=== PATIENT | female | born 1980 | race Caucasian/White ===

== ENCOUNTER 2017-03-23 03:01 | Inpatient (IN) | payer OTHER ==
[~2017-03-23] VITALS: Ht 167.6 cm; Wt 73.0 kg
[~2017-03-23 03:01] MED LIST: CYAN1LOZ PO; DOXY-300 PO; GABA-113 PO; HYDR-5688 PO; MISCCAP80 PO; SILV1PAD9 TOP; TOPI50TA16 PO; TRAZ50TA35 PO; VENL150C PO; [UNRECOGNIZED DRUG - CODE] TOP
--- NOTE | 2017-03-23 03:27 | EMERGENCY ROOM VISIT NOTE ---
History Report prepared by Veena: Dedrick Gutierrez Under the Supervision of: Dr. Renato Forman D.O. First contact with patient: 03:10 Chief Complaint: MENTAL HEALTH EVALUATION Stated Complaint: MR History of Present Illness The patient is a 37 year old female who presents to the Emergency Room for an acute mental health evaluation. As per geriatric case manager, the patient has a history of paranoid schizophrenia and is off of her medications. The patient called police tonight because she thought that somebody was outside of her house. She told police that the person went into her home and was sitting on her couch. She also told police that she was afraid that said person was going to kill her. Police did not find any intruders. The patient is currently denying delusions or hallucinations. She does not currently trust anybody and does not want to answer more questions. She believes that her phone was hacked. She has also been having problems with her domestic partner and has been having trouble sleeping. The patient notes that she drinks a lot of water as she is carrying a water jug around with her. The patient follows up with psychiatry. The patient is not taking her Trazodone. She denies suicidal or homicidal ideations. Source of History: patient, other (geriatric case manager) Onset: tonight Position: other (psyche) Quality: other (mental health evaluation) Timing: other (acute) Note: The patient denies SI or HI. Review of Systems See HPI for pertinent positives and negatives. A total of ten systems were reviewed and were otherwise negative. Past Medical & Surgical Medical Problems: (1) Anxiety (2) Depression (3) History of intravenous drug use in remission (4) IBS (irritable bowel syndrome) (5) Migraines (6) MRSA (methicillin resistant staph aureus) culture positive Surgical Problems: (1) History of section Family History Patient reports no known family medical history. Social History Smoking Status: Current Every Day Smoker Drug Use: other Marital Status: single Occupation Status: employed Current/Historical Medications Scheduled Buspirone Hcl (Buspirone Hcl), 5 MG PO BID Lurasidone Hcl (Latuda), 40 MG PO HS Topiramate (Topamax), 50 MG PO DAILY Trazodone Hcl (Trazodone), 50 MG PO HS Allergies Coded Allergies: Quinolones (Verified Allergy, Unknown, SENSITIVE, 03/23/17) Physical Exam Vital Signs Date Time Temp Pulse Resp B/P Pulse Ox O2 Delivery O2 Flow Rate FiO2 03/23/17 05:35 110 16 145/96 98 Room Air 03/23/17 03:05 36.6 110 18 142/90 99 Room Air Physical Exam GENERAL: Awake, alert, well-appearing, in no distress HENT: Normocephalic, atraumatic. Oropharynx unremarkable. EYES: Normal conjunctiva. Sclera non-icteric. NECK: Supple. No nuchal rigidity. FROM. No JVD. RESPIRATORY: Clear to auscultation. CARDIAC: Regular rate, normal rhythm. Extremities warm and well perfused. Pulses equal. ABDOMEN: Soft, non-distended. No tenderness to palpation. No rebound or guarding. No masses. RECTAL: Deferred. MUSCULOSKELETAL: Chest examination reveals no tenderness. The back is symmetrical on inspection without obvious abnormality. There is no CVA tenderness to palpation. No joint edema. LOWER EXTREMITIES: Calves are equal size bilaterally and non-tender. No edema. No discoloration. NEURO: Normal sensorium. No sensory or motor deficits noted. SKIN: No rash or jaundice noted. PSYCH: Paranoid, confrontational, delusional, agitated. Medical Decision & Procedures Laboratory Results 03/23/17 03:41 Red Blood Count 4.70, Mean Corpuscular Volume 91.9, Mean Corpuscular Hemoglobin 31.7, Mean Corpuscular Hemoglobin Concent 34.5, Mean Platelet Volume 10.1, Neutrophils (%) (Auto) 73.8, Lymphocytes (%) (Auto) 20.3, Monocytes (%) (Auto) 4.8, Eosinophils (%) (Auto) 0.7, Basophils (%) (Auto) 0.2, Neutrophils # (Auto) 9.26, Lymphocytes # (Auto) 2.55, Monocytes # (Auto) 0.60, Eosinophils # (Auto) 0.09, Basophils # (Auto) 0.03 03/23/17 03:41 Test 03/23/17 03:35 03/23/17 03:41 03/23/17 04:30 Urine Color YELLOW Urine Appearance CLEAR (CLEAR) Urine pH 6.0 (4.5-7.5) Urine Specific [place] 1.007 (1.000-1.030) Urine Protein NEG (NEG) Urine Glucose (UA) NEG (NEG) Urine Ketones NEG (NEG) Urine Occult Blood NEG (NEG) Urine Nitrite NEG (NEG) Urine Bilirubin NEG (NEG) Urine Urobilinogen NEG (NEG) Urine Leukocyte Esterase NEG (NEG) Urine Opiates Screen NEG (NEG) Urine Methadone, Qualitative NEG (NEG) Urine Barbiturates NEG (NEG) Urine Phencyclidine (PCP) Level NEG (NEG) Ur Amphetamine/Methamphetamine POS (NEG) MDMA (Ecstasy) Screen POS (NEG) Urine Benzodiazepines Screen NEG (NEG) Urine Cocaine Metabolite NEG (NEG) Urine Marijuana (THC) NEG (NEG) White Blood Count 12.56 K/uL (4.8-10.8) Red Blood Count 4.70 M/uL (4.2-5.4) Hemoglobin 14.9 g/dL (12.0-16.0) Hematocrit 43.2 % (37-47) Mean Corpuscular Volume 91.9 fL (80-100) Mean Corpuscular Hemoglobin 31.7 pg (25-34) Mean Corpuscular Hemoglobin Concent 34.5 g/dl (32-36) Platelet Count 428 K/uL (130-400) Mean Platelet Volume 10.1 fL (7.4-10.4) Neutrophils (%) (Auto) 73.8 % Lymphocytes (%) (Auto) 20.3 % Monocytes (%) (Auto) 4.8 % Eosinophils (%) (Auto) 0.7 % Basophils (%) (Auto) 0.2 % Neutrophils # (Auto) 9.26 K/uL (1.4-6.5) Lymphocytes # (Auto) 2.55 K/uL (1.2-3.4) Monocytes # (Auto) 0.60 K/uL (0.11-0.59) Eosinophils # (Auto) 0.09 K/uL (0-0.5) Basophils # (Auto) 0.03 K/uL (0-0.2) RDW Standard Deviation 42.6 fL (36.4-46.3) RDW Coefficient of Variation 12.6 % (11.5-14.5) Immature Granulocyte % (Auto) 0.2 % Immature Granulocyte # (Auto) 0.03 K/uL (0.00-0.02) Anion Gap 9.0 mmol/L (3-11) Est Creatinine Clear Calc Drug Dose 93.0 ml/min Estimated GFR () 103.0 Estimated GFR (Non- 88.8 BUN/Creatinine Ratio 9.2 (10-20) Calcium Level 9.4 mg/dl (8.5-10.1) Total Bilirubin 0.6 mg/dl (0.2-1) Direct Bilirubin 0.1 mg/dl (0-0.2) Aspartate Amino Transf (AST/SGOT) 15 U/L (15-37) Alanine Aminotransferase (ALT/SGPT) 33 U/L (12-78) Alkaline Phosphatase 86 U/L (45-117) Total Protein 9.0 gm/dl (6.4-8.2) Albumin 4.6 gm/dl (3.4-5.0) Thyroid Stimulating Hormone (TSH) 0.870 uIu/ml (0.300-4.500) Ethyl Alcohol mg/dL < 3.0 mg/dl (0-3) Bedside Glucose 126 mg/dl (70-90) Laboratory results reviewed by me Medications Administered Medications (Trade) Dose Ordered Sig/Jason Route Start Time Stop Time Status Last Admin Dose Admin Haloperidol Lactate (Haldol Inj) 10 mg STK-MED ONCE .ROUTE 03/23/17 04:53 03/23/17 04:54 DC 03/23/17 04:57 10 MG ED Course 0320: The patient was evaluated in room A5. A complete history and physical exam was performed. 0500: The patient became highly agitated. She was given 10 mg Haldol IM. 0523: The patient told nursing staff that she has been smoking methamphetamine. 0555: The patient is being evaluated by Mobile Crisis. 0640: The patient is a voluntary admission. Bed search being conducted. Medical Decision Differential diagnosis includes acute psychosis, acute anxiety, acute depression , acute schizophrenic, acute bipolar disorder, acute metabolic derangement. Patient at 5:02 AM had an episode of being combative and agitated with security at bedside. Patient was given Haldol 10 mg intramuscular as well as soft restraints. Patient is still awaiting psychiatric evaluation and likely will be transferred for psych treatment Spoke with the crisis counselor at 6:45 AM the patient will be admitted under 201 is currently a bed search. Patient has been stable and calm after medications were administered Impression Primary Impression: Psychosis Scribe Attestation The scribe's documentation has been prepared under my direction and personally reviewed by me in its entirety. I confirm that the note above accurately reflects all work, treatment, procedures, and medical decision making performed by me. Departure Information Dispostion Still a Patient Referrals No Doctor, Assigned (PCP) Patient Instructions My [facility] Problem Qualifiers Primary Impression: Psychosis Psychosis type: delusional disorder Qualified Codes: F22 - Delusional disorders
[2017-03-23 03:59] LABS: BASO % 0.2 %; BASO ABS # 0.03 K/uL (0-0.2); COMPLETE YES; EOS % 0.7 %; HEMATOCRIT 43.2 % (37-47); IG% 0.2 %; LYMPH % 20.3 %; LYMPH ABS # 2.55 K/uL (1.2-3.4); MEAN CELL VOLUME 91.9 fL (80-100); MEAN CORPUSCULAR HEMOGLOBIN 31.7 pg (25-34); MEAN CORPUSCULAR HGB CONC 34.5 g/dl (32-36); MEAN PLATELET VOLUME 10.1 fL (7.4-10.4); MONO % 4.8 %; NEUT % 73.8 %; PLATELET COUNT 428 K/uL (130-400); WHITE BLOOD COUNT 12.56 K/uL (4.8-10.8)
[2017-03-23 04:01] LABS: URINE APPEARANCE CLEAR (CLEAR); URINE BILIRUBIN NEG (NEG); URINE COLOR YELLOW; URINE NITRITE NEG (NEG); URINE SPECIFIC GRAVITY 1.007 (1.000-1.030); UROBILINOGEN NEG (NEG)
[2017-03-23 04:03] LABS: MANUAL MICROSCOPIC REQUIRED? NO; REVIEW REQ? NO
[2017-03-23] MEDS ORDERED: BUSP5TAB59 PO (04:26)
[2017-03-23] MEDS ORDERED: LURA40TA PO (04:26)
[2017-03-23 04:27] LABS: BUN/CREATININE RATIO 9.2 (10-20); CALCIUM 9.4 mg/dl (8.5-10.1); CREATININE 0.83 mg/dl (0.60-1.20); POTASSIUM 3.3 mmol/L (3.5-5.1)
[2017-03-23 04:39] LABS: THYROID STIMULATING HORMONE 0.87 uIu/ml (0.300-4.500)
[2017-03-23 04:51] LABS: BENZODIAZEPINE, URINE NEG (NEG); COCAINE,URINE NEG (NEG); PHENCYCLIDINE, URINE NEG (NEG)
[2017-03-23] MEDS ORDERED: HALOPERIDOL LACTATE 5 MG/ML 1 ML VIAL ONE (04:53)
[2017-03-23] MEDS ORDERED: NURSING VERBAL MED ORDER ONE ×2 (05:00→14:00)
[2017-03-23 07:10] VITALS: O2SAT 98
[2017-03-23] MEDS ORDERED: BusPIRone 15 MG TAB PO STA (09:05)
[2017-03-23] MEDS ORDERED: TOPIRAMATE 50 MG TAB PO STA (09:05)
[2017-03-23] MEDS ORDERED: HALOPERIDOL 5 MG TAB PO STA (10:02)
--- NOTE | 2017-03-23 10:08 | EMERGENCY ROOM VISIT NOTE ---
ED Visit Note First contact with patient: 08:02 This patient was signed out to me at change of shift awaiting bed search. I will order 5 mg of BuSpar and 50 mg of Topamax as these are her daily medications. The patient will be evaluated shortly by staff from [facility]. 1005: The patient has been accepted by [facility]. They requested that we order 5 mg of oral Haldol. I did this. The patient became upstairs in the next couple of hours for further care.
[2017-03-23] MEDS ORDERED: SODIUM CHLORIDE 0.65% NA SOLN 45 ML (OCEAN) PRN (14:45)
[2017-03-23] MEDS ORDERED: ACETAMINOPHEN 325 MG TAB PO PRN (14:45)
[2017-03-23] MEDS ORDERED: ALUMINUM/MAGNESIUM SUSP 30 ML UDC PO PRN (14:45)
[2017-03-23] MEDS ORDERED: hydrOXYzine HCL 25 MG TAB PO PRN ×2 (14:45)
[2017-03-23] MEDS ORDERED: MAGNESIUM HYDROXIDE SUSP 30 ML UDC PO PRN (14:45)
[2017-03-23] MEDS ORDERED: BISMUTH SUBSALICYLATE PER ML OMNICELL CHARGE PO PRN (14:45)
[2017-03-23 15:02] VITALS: BP 112/79; PULSE 103; TEMP 36.9; Ht 167.6 cm; Wt 73.0 kg
--- NOTE | 2017-03-23 15:08 | Psychiatric History & Physical ---
History Date of Service Mar 23, 2017. Identifying Data Clarisa Zhu is a 37-year-old female who currently lives in [place] with her boyfriend. Clarisa Zhu was admitted on a 201 voluntary commitment. Patient is admitted from ED. The patient was brought to the ED by the police after calling about an intruder. Information provided by the patient is considered to be unreliable due to psychosis. Chief Complaint "I don't feel safe, I'm pretty sure someone is after me". History of Present Illness Clarisa was last on our unit in 2010, at that time she was admitted with a diagnosis of bipolar do with paranoia due to injecting bath salts. She states that she has since her and was avoiding substances until about 3 months ago. She states her current diagnosis is paranoid schizophrenia. She reports being admitted to [facility] in December and using meth amphetamines (unable to quantify) so that she can stay up at night as she believes a man (who looks like the network security engineer she sprayed perfume on in the ED) is trying to harm her. She believes that her food/beverages may be contaminated and obsessively drinks water to flush toxins. She checks and rechecks her pills and believes that some of them may be replaced/not correct. She has actually thrown out her supply of Neurontin. She remains under the care of Dr. Brown and his physician's elementary assistant principal and states that attempts to titrate Latuda have only resulted in her feeling "not right", meaning more suicidal. She denies any intent or plan to harm herself currently. She apologized for changing the subject and getting upset and for her restlessness. She did receive Haldol IM in ED and then 1 dose PO prior to coming up to unit. After the agitation with security early this am she was briefly in soft restraints. She believes that she hears things but cannot describe at this time adding "I know this stuff is real". Past Psychiatric History Current OP Treatment: psychiatrist (Kevin but states has an appt with [facility] psych [facility] on Sunday for a new prescriber), therapist ([facility]), binder caser Prior OP Treatment: psychiatrist, therapist Prior Psych Hospitalizations: [facility]2010), other ([place] 2016, maybe others) Access to a Gun: No (denies but not reliable) Suicide Attempts: No (but not reliable) Past Medication Trials "I've been on everything". Chart lists lamictal, lithium, Seroquel, Zyprexa, Geodon, Risperdal, trazodone; most recently Latuda, doesn't recognize latuda or topamax given in ED. She notes past positive response to Risperdal and [place]. Past Medical/Surgical History History of Concussion/Seizure: No (1) Migraines (2) IBS (irritable bowel syndrome) (3) History of section Allergies Allergies: Coded Allergies: Quinolones (Verified Allergy, Unknown, SENSITIVE, 03/23/17) Home Medications Scheduled Buspirone Hcl (Buspirone Hcl), 5 MG PO BID Lurasidone Hcl (Latuda), 40 MG PO HS Topiramate (Topamax), 50 MG PO DAILY Trazodone Hcl (Trazodone), 50 MG PO HS Family History Patient reports no known family medical history. History of Suicide: Yes (several extended relatives in past year) History of Substance Abuse: No Psychiatric History: Yes (depression) Alcohol Use Alcohol Use In Past 12 Months: No Smoking Use Smoking Status: Current Every Day Smoker (1 PPD) brief intervention performed lasting >5 min, precontemplation stage with regards to quitting as finds helpful coping skill at this time. Accepting of nicotine patch. Substance History has been inpatient rehab at least twice in 2006 and 2008--history of ETOH dependence in 20s, past heroin, mentions trying other "running the gamut", patient disorganized and unable to quantify. She admits to use of methamphetamines prior to admission. Personal History Lives in: [place] Education: graduated college (associates degree from [employer] ([employer])) Work History: unemployed, states she was denied SSI Relationship History: ( several years, finalized June 2016) Children: 2--son who is about to graduate lives with her parents, daughter with ex Spiritual Affiliation: denied Legal History: reported (hx of DUIs in 20s, "multiple restraining orders" by mother and sister) Psychological Trauma History: Victimization (patient wouldn't elaborate) Review of Systems Psych: denies symptoms other than stated above Constitutional: denied Cardiovascular: denied GI: denied Neurologic: denied Remainder of 10 body systems also reviewed and denied other than noted above. Examination Physical Examination A physical exam was performed in the ER by Dr. Sampson prior to admission to the unit. I accept that physical as correct/medical clearance for the inpatient physical exam. Vital Signs Vital Signs Past 12 Hours Date Time Temp Pulse Resp B/P Pulse Ox O2 Delivery O2 Flow Rate FiO2 03/23/17 07:10 102 20 115/74 98 Room Air 03/23/17 05:35 110 16 145/96 98 Room Air 03/23/17 03:05 36.6 110 18 142/90 99 Room Air Laboratory Results Last 24 Hours Test 03/23/17 03:35 03/23/17 03:41 03/23/17 04:30 Urine Color YELLOW Urine Appearance CLEAR Urine pH 6.0 Urine Specific [place] 1.007 Urine Protein NEG Urine Glucose (UA) NEG Urine Ketones NEG Urine Occult Blood NEG Urine Nitrite NEG Urine Bilirubin NEG Urine Urobilinogen NEG Urine Leukocyte Esterase NEG Urine Opiates Screen NEG Urine Methadone, Qualitative NEG Urine Barbiturates NEG Urine Phencyclidine (PCP) Level NEG Ur Amphetamine/Methamphetamine POS MDMA (Ecstasy) Screen POS Urine Benzodiazepines Screen NEG Urine Cocaine Metabolite NEG Urine Marijuana (THC) NEG White Blood Count 12.56 K/uL Red Blood Count 4.70 M/uL Hemoglobin 14.9 g/dL Hematocrit 43.2 % Mean Corpuscular Volume 91.9 fL Mean Corpuscular Hemoglobin 31.7 pg Mean Corpuscular Hemoglobin Concent 34.5 g/dl Platelet Count 428 K/uL Mean Platelet Volume 10.1 fL Neutrophils (%) (Auto) 73.8 % Lymphocytes (%) (Auto) 20.3 % Monocytes (%) (Auto) 4.8 % Eosinophils (%) (Auto) 0.7 % Basophils (%) (Auto) 0.2 % Neutrophils # (Auto) 9.26 K/uL Lymphocytes # (Auto) 2.55 K/uL Monocytes # (Auto) 0.60 K/uL Eosinophils # (Auto) 0.09 K/uL Basophils # (Auto) 0.03 K/uL RDW Standard Deviation 42.6 fL RDW Coefficient of Variation 12.6 % Immature Granulocyte % (Auto) 0.2 % Immature Granulocyte # (Auto) 0.03 K/uL Sodium Level 139 mmol/L Potassium Level 3.3 mmol/L Chloride Level 108 mmol/L Carbon Dioxide Level 22 mmol/L Anion Gap 9.0 mmol/L Blood Urea Nitrogen 8 mg/dl Creatinine 0.83 mg/dl Est Creatinine Clear Calc Drug Dose 93.0 ml/min Estimated GFR () 103.0 Estimated GFR (Non- 88.8 BUN/Creatinine Ratio 9.2 Random Glucose 100 mg/dl Calcium Level 9.4 mg/dl Total Bilirubin 0.6 mg/dl Direct Bilirubin 0.1 mg/dl Aspartate Amino Transf (AST/SGOT) 15 U/L Alanine Aminotransferase (ALT/SGPT) 33 U/L Alkaline Phosphatase 86 U/L Total Protein 9.0 gm/dl Albumin 4.6 gm/dl Thyroid Stimulating Hormone (TSH) 0.870 uIu/ml Ethyl Alcohol mg/dL < 3.0 mg/dl Bedside Glucose 126 mg/dl Mental Examination During interview pt is: alert and oriented Appearance: disheveled Eye contact is: fair Motor behavior is: steady gait & station, psychomotor agitation Speech: other (hyperverbal, fast) Affect: depressed, tearful, anxious Mood is: depressed, anxious Thought process: tangential, flight of ideas Thought content: preoccupation, paranoid, compulsions, delusions Suicidal thought are: present, Plan: denied, Intent: denied Homicidal thoughts are: denied, Plan: denied, Intent: denied Hallucinations: denies auditory, denies visual Cognition: language grossly intact (attention impaired), other Intelligence estimated to be: above average Insight: impaired Judgement: impaired Impression / Recommendations Impression 37 yo female with prior diagnoses of paranoid schizophrenia and bipolar disorder presents with mixed manic and depressed mood in the context of methamphetamine abuse. Inventory Assets Strengths: hx of advanced degree, accepting of need for medication Risk Factors Assessment : Yes /single/: Yes Mental Health Diagnoses: Yes Substance use disorders: Yes Previous psychiatric stay: Yes Recommendations (1) Schizoaffective disorder, bipolar type 03/23 -- [facility] ) on q 15 min checks (behavioral with suicide precautions) for safety. The patient will participate in group, recreational and milieu therapies and will be offered additional individual and family sessions as clinically appropriate. She is agreeable to a trial of Invega with probable conversion to injectable following discussion of risks/benefits/alternatives including but not limited to risks of TD and need for metabolic monitoring. Will d/c Latuda as hasn't been taking consistently and start Invega 3 mg this hs. Consider lithium retrial. Haldol, Ativan and Cogentin prns. d/c Buspar as serotonergic. (2) Substance use disorder Brief intervention was performed, patient aware that methamphetamine use likely trigger for manic episode and worsening paranoia. Brief intervention lasted >5 min. Patient states she plans to abstain. Additional recovery materials to be provided when less psychotic/better attention span and will address level of D& A counseling. (3) Migraines continue topamax (4) Nicotine dependence Brief Intervention as above. 21 mg Nicotine patch. CPT Code Initial Hospital Care: [id number]
[2017-03-23] MEDS ORDERED: NICOTINE POLACRILEX 2 MG GUM MT PRN (15:45)
[2017-03-23] MEDS: NICOTINE 21 MG/24 HR TDSY TD SCH (16:18)
[2017-03-23] MEDS: HALOPERIDOL 5 MG TAB PO PRN (16:18)
[2017-03-23] MEDS: PALIPERIDONE 3 MG TABCR PO SCH (21:14)
[2017-03-23] MEDS: TRAZODONE HCL 50 MG TAB PO SCH (21:14)
[2017-03-24 07:06] VITALS: BP_SYST 90; BP_SYST 96; BP_DIAS 62; BP_DIAS 68; PULSE 89; PULSE 91; TEMP 36.5
--- NOTE | 2017-03-24 08:02 | Psychiatric Progress Notes ---
Progress Note Date of Service Mar 24, 2017. Interval History 37-year-old female with a history of bipolar disorder, schizophrenia and methamphetamine and bath salt abuse who currently lives in [place] with her boyfriend and was admitted on a 201 voluntary commitment after she presented to the ED. The patient was brought to the ED by the police after calling about an intruder, and was found to be psychotic. Chief Complaint "Just so tired". Subjective Patient was seen & assessed interval progress reviewed with nursing. Staff report she attended some groups but refused others due to racing thoughts. She got multiple prns of Haldol. She submitted a 72 hour notice to withdraw from treatment which expires 03/26/17. She is taking Invega as ordered. She had a repeat BMP today and potassium has normalized. Today, she was seen in her room , where she is in bed resting. She states that she feels irritable and tired, which is usual for her when coming off of meth. She last used meth 2 days ago, the day before she came to the hospital. She reports using episodically, usually multiple times a week, and although she doesn't consider herself an addict, she says that the meth "has become a problem in the past couple of months." She does say she wants to stop using, and does not feel that she needs inpatient rehabilitation, stating "I can do it myself." She does have outpatient substance abuse counseling with Mariella at [facility]. Mood continues to be depressed and she endorses suicidal thoughts, thinking "what's the point anyhow." She does want to feel better, but at the same time wants to ensure that she can leave the hospital soon, as she feels guilty and lonely here , again she needs to get out and find a job. She also does not like being locked up inside, and says she submitted her 72 hour notice as she hopes to leave sooner rather than later. At the same time, she expresses understanding that in order to follow the treatment plan she agreed to yesterday, she would need to stay for at least 4-5 days in order to be started on Invega Sustenna. She has tolerated the oral Invega well, and also reports that she took risperidone oral in the past, which she tolerated well and was helpful, but caused weight gain. She remains willing for the Invega Sustenna shots, stating that compliance with oral medication has been a big problem for her. She feels safe here in the hospital and is able to contract for safety on the unit, but not outside the hospital. She denies hallucinations and delusions. Sleep Information Total Hours of Sleep: 8.50 Meal Information Percent of Dinner Consumed: 70 Mental Status Exam During interview pt is: alert and oriented, cooperative Appearance: disheveled, other (tired, yawning) Eye contact is: fair Motor behavior is: psychomotor agitation (restlessness, shifting around in bed) Speech: normal in rate, rhythm & volume Affect: depressed, anxious, other (tired) Mood is: depressed Thought process: goal directed Thought content: preoccupation, cognitive distortions Suicidal thought are: present Homicidal thoughts are: denied Hallucinations: denies auditory, denies visual Cognition: other (attention impaired) Intelligence estimated to be: above average Insight: impaired Judgement: impaired Impression 37 yo female with prior diagnoses of paranoid schizophrenia and bipolar disorder presents with psychosis and mixed manic and depressive symptoms in the context of methamphetamine abuse. Plan (1) Schizoaffective disorder, bipolar type 03/23 -- The patient is admitted to [facility] ([facility] unit ) on q 15 min checks (behavioral with suicide precautions) for safety. The patient will participate in group, recreational and milieu therapies and will be offered additional individual and family sessions as clinically appropriate. She is agreeable to a trial of Invega with probable conversion to injectable following discussion of risks/benefits/alternatives including but not limited to risks of TD and need for metabolic monitoring. Will d/c Latuda as hasn't been taking consistently and start Invega 3 mg this hs. Consider lithium retrial. Haldol, Ativan and Cogentin prns. d/c Buspar as serotonergic. 03/24 -Continue oral Invega with plan to progress to Sustenna due to noncompliance with oral medications. She would like to start the Invega Sustenna shot today, as she is hoping to have a shorter hospital stay, and if she is tolerating oral Invega well and also tolerated oral risperidone in the past, she is unlikely to have an adverse reaction. We'll get the 234 mg loading dose today, and the 156 mg shots on 03/28/2017. She will then need maintenance dosing of 117 mg 5 weeks after the first injection (on or around 04/28/2017) and then every 4 weeks. -Pt has submitted a 72 hour notice requesting to withdraw from treatment. She is committable and may need to pursue 302. -Fasting labs for monitoring on an atypical: WNLS. -Coordinate care with outpatient psychiatrist (switching from Dr. Brown to the [facility] psych clinic). Appointment with Dr. Arauz may need to be rescheduled if she is still in the hospital. (2) Substance use disorder Brief intervention was performed, patient aware that methamphetamine use likely trigger for manic episode and worsening paranoia. Brief intervention lasted >5 min. Patient states she plans to abstain. Additional recovery materials to be provided when less psychotic/better attention span and will address level of D& A counseling. (3) Migraines continue topamax (4) Nicotine dependence Brief Intervention performed on admission. 21 mg Nicotine patch. (5) MRSA (methicillin resistant staph aureus) culture positive MNPR with appropriate precautions. 03/24 - Check MRSA nasal swab to determine current status. Discharge / Aftercare Planning Therapist: Name: [facility] Research And Development Manager: Name: Sophie Patel Visit Code E&M Code: 27745 Inventory Assets Strengths: hx of advanced degree, accepting of need for medication Risk Factors Assessment : Yes /single/: Yes Mental Health Diagnoses: Yes Substance use disorders: Yes Previous psychiatric stay: Yes Data Vital Signs Last 24 Hrs: Date Time Temp Pulse Resp B/P Pulse Ox O2 Delivery O2 Flow Rate FiO2 03/24/17 07:06 36.5 89 16 96/68 91 90/62 03/23/17 15:02 36.9 103 16 112/79 Meds Administered Last 24 Hrs: Meds Administered (Past 24Hrs) Medications (Trade) Dose Ordered Sig/Jason Route Start Time Stop Time Status Last Admin Dose Admin Haloperidol Lactate (Haldol Inj) 10 mg STK-MED ONCE .ROUTE 03/23/17 04:53 03/23/17 15:37 DC 03/23/17 04:57 10 MG Buspirone HCl (BusPAR TAB) 5 mg NOW STAT PO 03/23/17 09:05 03/23/17 15:37 DC 03/23/17 09:05 5 MG Topiramate (Topamax Tab) 50 mg NOW STAT PO 03/23/17 09:05 03/23/17 15:37 DC 03/23/17 09:05 50 MG Haloperidol (Haldol Tab) 5 mg NOW STAT PO 03/23/17 10:02 03/23/17 15:37 DC 03/23/17 10:02 5 MG Paliperidone (Invega) 3 mg HS PO 03/23/17 22:00 04/22/17 21:59 03/23/17 21:14 3 MG Trazodone HCl (Desyrel Tab) 50 mg HS PO 03/23/17 22:00 04/22/17 21:59 03/23/17 21:14 50 MG Haloperidol (Haldol Tab) 5 mg Q4 PRN PO 03/23/17 15:45 04/22/17 15:44 03/23/17 16:18 5 MG Nicotine (Nicoderm Cq 21MG Patch) 1 patch QAM TD 03/24/17 09:00 04/23/17 08:59 03/23/17 16:18 1 PATCH
[2017-03-24 08:22] LABS: BASO % 0.2 %; BASO ABS # 0.02 K/uL (0-0.2); COMPLETE YES; EOS % 2.1 %; HEMATOCRIT 40.1 % (37-47); IG% 0.1 %; LYMPH % 39.4 %; LYMPH ABS # 3.22 K/uL (1.2-3.4); MEAN CELL VOLUME 92.6 fL (80-100); MEAN CORPUSCULAR HEMOGLOBIN 32.3 pg (25-34); MEAN CORPUSCULAR HGB CONC 34.9 g/dl (32-36); MEAN PLATELET VOLUME 10.1 fL (7.4-10.4); MONO % 4.9 %; NEUT % 53.3 %; PLATELET COUNT 304 K/uL (130-400); RED BLOOD COUNT 4.33 M/uL (4.2-5.4); WHITE BLOOD COUNT 8.17 K/uL (4.8-10.8)
[2017-03-24 08:44] LABS: POTASSIUM 3.5 mmol/L (3.5-5.1)
[2017-03-24 08:50] LABS: CHOLESTEROL/HDL RATIO 4.1
[2017-03-24] MEDS: TOPIRAMATE 50 MG TAB PO SCH (09:04)
[2017-03-24] MEDS: NICOTINE 21 MG/24 HR TDSY TD SCH (09:05)
[2017-03-24] MEDS: HALOPERIDOL 5 MG TAB PO PRN (15:03)
[2017-03-24] MEDS: BENZTROPINE MESYLATE 0.5 MG TAB PO PRN ×2 (15:09→19:34)
[2017-03-24] MEDS ORDERED: INVEGA SUSTENNA 234 MG/ML 1.5 ML SYR IM SCH (16:00)
[2017-03-24] MEDS ORDERED: DiphenhydrAMINE HCL 50 MG/ML VIAL ONE (19:42)
[2017-03-24] MEDS ORDERED: DiphenhydrAMINE HCL 50 MG/ML VIAL IM SCH (19:45)
[2017-03-24] MEDS ORDERED: DiphenhydrAMINE INJ 50 MG in SYRINGE 0 ML IV SCH (19:45)
[2017-03-24] MEDS: PALIPERIDONE 3 MG TABCR PO SCH (21:34)
[2017-03-24] MEDS: TRAZODONE HCL 50 MG TAB PO SCH (21:34)
[2017-03-25 07:00] VITALS: BP_SYST 106; BP_SYST 115; BP_DIAS 71; BP_DIAS 76; PULSE 89; PULSE 99; TEMP 36.6
--- NOTE | 2017-03-25 08:00 | Psychiatric Progress Notes ---
Progress Note Date of Service Mar 25, 2017. Interval History 37-year-old female with a history of bipolar disorder, schizophrenia and methamphetamine and bath salt abuse who currently lives in [place] with her boyfriend and was admitted on a 201 voluntary commitment after she presented to the ED. The patient was brought to the ED by the police after calling about an intruder, and was found to be psychotic. Chief Complaint "A lot of cramps". Subjective Patient was seen & assessed interval progress reviewed with nursing. Staff report she refused her first loading dose of Invega Sustenna and was requesting to leave AMA yesterday, processed with staff and ultimately agreed to stay, although 72 hour notice remains in. She requested prn medication and got Haldol 5mg, and then reported throat tightening, got benztropine which helped. Several hours later she again has jaw stiffness and took oral benztropine but then vomited, so got IM Benadryl. She refused most groups, but did go to community meeting. Today, she has attended some morning groups, but return to bed as she just started her period and is having cramps. She takes Midol at home which is usually helpful. She states her mood is improved today, and states that yesterday she was feeling more irritable because she was "really tired, a lot on my mind, down on myself." She denies suicidal thoughts, paranoia, and feels her thinking has cleared. She is tolerating oral Invega go well, and says she wants to postponed starting system until she is outpatient, as she is worried that she might get side effects. She is very focused on getting out of the hospital as soon as possible, stating that she wants to get a job and make money. She is willing to have a family meeting with her boyfriend tomorrow. Sleep Information Total Hours of Sleep: 7.25 Meal Information Percent of Breakfast Consumed: 75 Percent of Lunch Consumed: 75 Percent of Dinner Consumed: 50 Mental Status Exam During interview pt is: alert and oriented, cooperative Appearance: appropriately dressed, appropriately groomed, other (in bed, appears mildly uncomfortable) Eye contact is: fair Motor behavior is: psychomotor agitation (restlessness, shifting around in bed) Speech: normal in rate, rhythm & volume Affect: depressed, anxious Mood is: other ("a little better") Thought process: goal directed Thought content: preoccupation, cognitive distortions (focused on being discharged so she can get a job, minimizing presenting symptoms) Suicidal thought are: denied Homicidal thoughts are: denied Hallucinations: denies auditory, denies visual Cognition: other (attention impaired) Intelligence estimated to be: above average Insight: impaired Judgement: impaired Impression 37 yo female with prior diagnoses of paranoid schizophrenia and bipolar disorder presents with psychosis and mixed manic and depressive symptoms in the context of methamphetamine abuse. Although she initially agreed to starting Invega and transitioning to the long acting injectable, she then changed her mind, refuse the shot, and submitted a 72 hour notice requesting to withdraw from treatment prematurely. Psychosis has improved, and was likely methamphetamine induced. She will need, at the very least, a meeting with her boyfriend and a very strong safety plan before discharge. We will also need to coordinate with outpatient providers, as she believes she is scheduled to see Dr. Arauz at the [facility] psych clinic for the first time Sunday or Sunday of this week. Plan (1) Schizoaffective disorder, bipolar type 03/23 -- The patient is admitted to [facility] ([facility] unit ) on q 15 min checks (behavioral with suicide precautions) for safety. The patient will participate in group, recreational and milieu therapies and will be offered additional individual and family sessions as clinically appropriate. She is agreeable to a trial of Invega with probable conversion to injectable following discussion of risks/benefits/alternatives including but not limited to risks of TD and need for metabolic monitoring. Will d/c Latuda as hasn't been taking consistently and start Invega 3 mg this hs. Consider lithium retrial. Haldol, Ativan and Cogentin prns. d/c Buspar as serotonergic. 03/24 -Continue oral Invega with plan to progress to Sustenna due to noncompliance with oral medications. She would like to start the Invega Sustenna shot today, as she is hoping to have a shorter hospital stay, and if she is tolerating oral Invega well and also tolerated oral risperidone in the past, she is unlikely to have an adverse reaction. We'll get the 234 mg loading dose today, and the 156 mg shots on 03/28/2017. She will then need maintenance dosing of 117 mg 5 weeks after the first injection (on or around 04/28/2017) and then every 4 weeks. -Pt has submitted a 72 hour notice requesting to withdraw from treatment. She is committable and may need to pursue 302. -Fasting labs for monitoring on an atypical: WNLS. -Coordinate care with outpatient psychiatrist (switching from Dr. Brown to the [facility] psych clinic). Appointment with Dr. Arauz may need to be rescheduled if she is still in the hospital. 03/25 -Patient changed her mind and is now refusing to start Invega Sustenna. She wants to continue with the oral Invega for now, and reconsider the need for long acting injectable as an outpatient. We'll continue 3 mg daily at bedtime. -72 hour notice remains in and will in the evening hours of 03/26/2017. We will continue to gather information toward the need for ongoing treatment. -Staff to schedule family meeting with boyfriend for tomorrow. -Encourage the patient to work on her safety plan. (2) Substance use disorder Brief intervention was performed, patient aware that methamphetamine use likely trigger for manic episode and worsening paranoia. Brief intervention lasted >5 min. Patient states she plans to abstain. Additional recovery materials to be provided when less psychotic/better attention span and will address level of D& A counseling. -Will need to coordinate care with outpatient substance abuse therapist [facility]. (3) Migraines continue topamax (4) Nicotine dependence Brief Intervention performed on admission. 21 mg Nicotine patch. (5) MRSA (methicillin resistant staph aureus) culture positive MNPR with appropriate precautions. 03/24 - Check MRSA nasal swab to determine current status - negative. Discharge / Aftercare Planning Therapist: Name: [facility] Solar Designer/Installer: Name: Sophie Sweeney Visit Code E&M Code: 69398 Inventory Assets Strengths: hx of advanced degree, accepting of need for medication Risk Factors Assessment : Yes /single/: Yes Mental Health Diagnoses: Yes Substance use disorders: Yes Previous psychiatric stay: Yes Data Vital Signs Last 24 Hrs: Date Time Temp Pulse Resp B/P Pulse Ox O2 Delivery O2 Flow Rate FiO2 03/25/17 07:00 36.6 89 16 106/71 99 115/76 Meds Administered Last 24 Hrs: Meds Administered (Past 24Hrs) Medications (Trade) Dose Ordered Sig/Jason Route Start Time Stop Time Status Last Admin Dose Admin Buspirone HCl (BusPAR TAB) 5 mg NOW STAT PO 03/23/17 09:05 03/23/17 15:37 DC 03/23/17 09:05 5 MG Topiramate (Topamax Tab) 50 mg NOW STAT PO 03/23/17 09:05 03/23/17 15:37 DC 03/23/17 09:05 50 MG Haloperidol (Haldol Tab) 5 mg NOW STAT PO 03/23/17 10:02 03/23/17 15:37 DC 03/23/17 10:02 5 MG Paliperidone (Invega) 3 mg HS PO 03/23/17 22:00 03/28/17 23:00 03/24/17 21:34 3 MG Topiramate (Topamax Tab) 50 mg DAILY PO 03/24/17 09:00 04/23/17 08:59 03/24/17 09:04 50 MG Trazodone HCl (Desyrel Tab) 50 mg HS PO 03/23/17 22:00 04/22/17 21:59 03/24/17 21:34 50 MG Haloperidol (Haldol Tab) 5 mg Q4 PRN PO 03/23/17 15:45 04/22/17 15:44 03/24/17 15:03 5 MG Benztropine Mesylate (Cogentin Tab) 0.5 mg Q4 PRN PO 03/23/17 15:45 04/22/17 15:44 03/24/17 19:34 0.5 MG Nicotine (Nicoderm Cq 21MG Patch) 1 patch QAM TD 03/24/17 09:00 04/23/17 08:59 03/24/17 09:05 1 PATCH Diphenhydramine HCl (Benadryl Inj) 50 mg STK-MED ONCE .ROUTE 03/24/17 19:42 03/24/17 19:46 DC 03/24/17 19:53 50 MG Lab Results Last 24 Hrs: Last 24 Hours Test 03/24/17 08:05 White Blood Count 8.17 K/uL Red Blood Count 4.33 M/uL Hemoglobin 14.0 g/dL Hematocrit 40.1 % Mean Corpuscular Volume 92.6 fL Mean Corpuscular Hemoglobin 32.3 pg Mean Corpuscular Hemoglobin Concent 34.9 g/dl Platelet Count 304 K/uL Mean Platelet Volume 10.1 fL Neutrophils (%) (Auto) 53.3 % Lymphocytes (%) (Auto) 39.4 % Monocytes (%) (Auto) 4.9 % Eosinophils (%) (Auto) 2.1 % Basophils (%) (Auto) 0.2 % Neutrophils # (Auto) 4.35 K/uL Lymphocytes # (Auto) 3.22 K/uL Monocytes # (Auto) 0.40 K/uL Eosinophils # (Auto) 0.17 K/uL Basophils # (Auto) 0.02 K/uL RDW Standard Deviation 44.8 fL RDW Coefficient of Variation 13.2 % Immature Granulocyte % (Auto) 0.1 % Immature Granulocyte # (Auto) 0.01 K/uL Sodium Level 141 mmol/L Potassium Level 3.5 mmol/L Chloride Level 112 mmol/L Carbon Dioxide Level 21 mmol/L Anion Gap 8.0 mmol/L Fasting Glucose 87 mg/dl Triglycerides Level 106 mg/dl Cholesterol Level 157 mg/dl HDL Cholesterol 38 mg/dl LDL Cholesterol, Calculated 98 mg/dl VLDL Cholesterol, Calculated 21 mg/dl Cholesterol/HDL Ratio 4.1
[2017-03-25] MEDS: TOPIRAMATE 50 MG TAB PO SCH (08:50)
[2017-03-25] MEDS: NICOTINE 21 MG/24 HR TDSY TD SCH (08:51)
[2017-03-25] MEDS: IBUPROFEN 600 MG TAB PO PRN ×2 (12:19→19:39)
[2017-03-25] MEDS: TRAZODONE HCL 50 MG TAB PO SCH (21:04)
[2017-03-25] MEDS: PALIPERIDONE 3 MG TABCR PO SCH (21:04)
[2017-03-26 07:02] VITALS: BP_SYST 106; BP_SYST 114; BP_DIAS 73; BP_DIAS 80; PULSE 86; TEMP 36.2
[2017-03-26] MEDS: TOPIRAMATE 50 MG TAB PO SCH (09:03)
[2017-03-26] MEDS: NICOTINE 21 MG/24 HR TDSY TD SCH (09:03)
[2017-03-26] MEDS ORDERED: PALI3TAB PO (11:10)
--- NOTE | 2017-03-26 11:20 | Discharge Instructions ---
Discharge Information Report Includes Report will include the: Discharge Instructions & Summary Admission Admission Date / Time: Mar 23, 2017 at 13:45 Reason for Admission: [facility] Discharge Discharge Diagnosis / Problem: Schizoaffective disorder, substance use Condition at Discharge: Fair Discharge Goals Goal(s): Decrease discomfort, Improve disease control, Prevent Disease Progression Activity Recommendations Activity Limitations: resume your previous activity . Instructions / Follow-Up Instructions / Follow-Up . SPECIAL CARE INSTRUCTIONS: 1. Follow through with your scheduled aftercare appointments. If unable to keep an appointment, please call to reschedule. 2. Take your medication only as prescribed. Medication should not be changed or stopped without the approval of your doctor. In the event of worsening symptoms or concerns about side effects, contact your doctor immediately. 3. Utilize new healthy coping skills, anger management skills, and stress management skills learned during your hospitalization. Journal feelings and process them with a support person. Identify stressors or situations that may result in relapse, deterioration or inappropriate behaviors and develop a plan to deal with those issues. 4. If your coping skills are ineffective and you are in crisis, contact your outpatient providers for direction. If unable to reach your providers, please call the CAN HELP LINE AT or go to the closest Emergency Room. 5. Avoid alcohol and un-prescribed drugs. 6. You have been provided with the Mental Health Advance Directives Pamphlet for your review. AFTERCARE APPOINTMENTS: * Please call your insurance company prior to your scheduled appointment to confirm your aftercare providers are covered. Take your insurance information to your appointments. . Discharge / Aftercare Planning Primary Care Physician: Name: Dr. Herrera Therapist: Name Of Therapist: [facility] Date of Appointment: March 26, 2017 Apron Worker: Name: Sophie Sweeney . Follow-Up Care Plan for Follow-Up Care: The patient will have prompt follow up with Dr. Arauz tomorrow and with [place] for D&A treatment Current Hospital Diet Patient's current hospital diet: Regular Diet Discharge Diet Recommended Diet: Regular Diet Procedures Procedures Performed: No Pending Studies Pending Studies at Discharge: No Medical Emergencies . Who to Call and When: Medical Emergencies: For questions or emergencies related to your hospital stay, please contact the Inpatient Behavioral Health Unit at [phone]. A bobcat driver/labor is on-call 18/06 for the Behavioral Health Unit for emergencies At any time you feel your situation is an emergency, you may also call 911 immediately. . Non-Emergent Contact Non-Emergency issues call your: Psychiatrist, Therapist Advance Directives Existing Advance Directive: No Do You Have an Existing Mental: No Existing Living Will: No Existing Power of Yield Improvement Engineer: No Advance Directives Info Given: To Pt/S.O. Advance Directives Reason: Declines as Mental Health Visit. Discharge Summary Admission HPI Per the Admitting provider: Clarisa was last on our unit in 2010, at that time she was admitted with a diagnosis of bipolar do with paranoia due to injecting bath salts. She states that she has since her and was avoiding substances until about 3 months ago. She states her current diagnosis is paranoid schizophrenia. She reports being admitted to [facility] in December and using meth amphetamines (unable to quantify) so that she can stay up at night as she believes a man (who looks like the director of safety and security she sprayed perfume on in the ED) is trying to harm her. She believes that her food/beverages may be contaminated and obsessively drinks water to flush toxins. She checks and rechecks her pills and believes that some of them may be replaced/not correct. She has actually thrown out her supply of Neurontin. She remains under the care of Dr. Brown and his physician's janitorial assistant and states that attempts to titrate Latuda have only resulted in her feeling "not right", meaning more suicidal. She denies any intent or plan to harm herself currently. She apologized for changing the subject and getting upset and for her restlessness. She did receive Haldol IM in ED and then 1 dose PO prior to coming up to unit. After the agitation with security early this am she was briefly in soft restraints. She believes that she hears things but cannot describe at this time adding "I know this stuff is real". Hospital Course (1) Schizoaffective disorder, bipolar type 03/23 -- The patient is admitted to [facility] ) on q 15 min checks (behavioral with suicide precautions) for safety. The patient will participate in group, recreational and milieu therapies and will be offered additional individual and family sessions as clinically appropriate. She is agreeable to a trial of Invega with probable conversion to injectable following discussion of risks/benefits/alternatives including but not limited to risks of TD and need for metabolic monitoring. Will d/c Latuda as hasn't been taking consistently and start Invega 3 mg this hs. Consider lithium retrial. Haldol, Ativan and Cogentin prns. d/c Buspar as serotonergic. 03/24 -Continue oral Invega with plan to progress to Sustenna due to noncompliance with oral medications. She would like to start the Invega Sustenna shot today, as she is hoping to have a shorter hospital stay, and if she is tolerating oral Invega well and also tolerated oral risperidone in the past, she is unlikely to have an adverse reaction. We'll get the 234 mg loading dose today, and the 156 mg shots on 03/28/2017. She will then need maintenance dosing of 117 mg 5 weeks after the first injection (on or around 04/28/2017) and then every 4 weeks. -Pt has submitted a 72 hour notice requesting to withdraw from treatment. She is committable and may need to pursue 302. -Fasting labs for monitoring on an atypical: WNLS. -Coordinate care with outpatient psychiatrist (switching from Dr. Brown to the [facility] psych clinic). Appointment with Dr. Arauz may need to be rescheduled if she is still in the hospital. 03/25 -Patient changed her mind and is now refusing to start Invega Sustenna. She wants to continue with the oral Invega for now, and reconsider the need for long acting injectable as an outpatient. We'll continue 3 mg daily at bedtime. -72 hour notice remains in and will in the evening hours of 03/26/2017. We will continue to gather information toward the need for ongoing treatment. -Staff to schedule family meeting with boyfriend for tomorrow. -Encourage the patient to work on her safety plan. (2) Substance use disorder Brief intervention was performed, patient aware that methamphetamine use likely trigger for manic episode and worsening paranoia. Brief intervention lasted >5 min. Patient states she plans to abstain. Additional recovery materials to be provided when less psychotic/better attention span and will address level of D& A counseling. -Will need to coordinate care with outpatient substance abuse therapist [email or web address]. (3) Migraines continue topamax (4) Nicotine dependence Brief Intervention performed on admission. 21 mg Nicotine patch. (5) MRSA (methicillin resistant staph aureus) culture positive MNPR with appropriate precautions. 03/24 - Check MRSA nasal swab to determine current status - negative. Risk Factors Assessment : Yes /single/: Yes Mental Health Diagnoses: Yes Substance use disorders: Yes Previous psychiatric stay: Yes Day of Discharge Assessment COURSE OF HOSPITALIZATION: The patient was on our unit for 3 days after having been admitted with psychotic behaviors in the context of use. She was started on Invega 3 mg at bedtime and agreed to convert to Invega Sustenna due to history of poor compliance with medications. However, at the time she was presented with the Invega Sustenna, she declined worrying that she would have a dystonic reaction to it as she did with Haldol. She therefore chose to remain on the pills and consider the injectable form as an outpatient. Her psychotic symptoms resolved relatively quickly and so can reasonably be assumed to be related to her abuse of drugs. Meeting was held with her boyfriend Moe this morning. They discussed her drug use and how they each play off of one another especially when arguing, resorting to drugs as a coping strategy. She voiced commitment to regaining and maintaining her sobriety through the use of AA and going to [place]. She will be seeing a new psychiatrist starting tomorrow at [facility] psych clinic and is looking forward to this as well. She was without suicidal ideation, it was confirmed that she does not have access to guns alcohol or drugs at home. She did submit her 72 hour notice to withdraw from treatment which will this evening and there are no grounds to keep her against her will. We were recommending that she attend rehabilitation which she declined DAY OF DISCHARGE ASSESSMENT: The patient is requesting discharge today. She denies suicidal or homicidal ideation. She denies any auditory or visual hallucinations and denies overt paranoia. She does have some suspiciousness related to her boyfriend, as he sneaks around and does drugs. She feels that she is ready to be discharged home with his commitment to follow-up. She is casually and appropriately dressed and groomed. Gait and station are within normal limits. Eye contact is good. Affect is restricted. Speech is of normal rate volume and tone. Thoughts are organized and goal directed. Recent and remote memory appear to be intact per conversation. Intelligence is estimated to be average. Insight and judgment are improved over admission. Laboratory Test 03/23/17 03:35 03/23/17 03:41 03/23/17 04:30 03/24/17 08:05 Urine Color YELLOW Urine Appearance CLEAR Urine pH 6.0 Urine Specific [place] 1.007 Urine Protein NEG Urine Glucose (UA) NEG Urine Ketones NEG Urine Occult Blood NEG Urine Nitrite NEG Urine Bilirubin NEG Urine Urobilinogen NEG Urine Leukocyte Esterase NEG Urine Opiates Screen NEG Urine Methadone, Qualitative NEG Urine Barbiturates NEG Urine Phencyclidine (PCP) Level NEG Urine Amphetamines Confirmation Pending Ur Amphetamine/Methamphetamine POS Urine Methamphetamine Confirmation Pending Urine MDE-amphetamine (MDEA) Pending Ur Methylenedioxyamphetamine (MDA) Pending MDMA (Ecstasy) Screen POS Methylenedioxymethamphetamine (MDMA Pending Urine Benzodiazepines Screen NEG Urine Cocaine Metabolite NEG Urine Marijuana (THC) NEG White Blood Count 12.56 8.17 Red Blood Count 4.70 4.33 Hemoglobin 14.9 14.0 Hematocrit 43.2 40.1 Mean Corpuscular Volume 91.9 92.6 Mean Corpuscular Hemoglobin 31.7 32.3 Mean Corpuscular Hemoglobin Concent 34.5 34.9 Platelet Count 428 304 Mean Platelet Volume 10.1 10.1 Neutrophils (%) (Auto) 73.8 53.3 Lymphocytes (%) (Auto) 20.3 39.4 Monocytes (%) (Auto) 4.8 4.9 Eosinophils (%) (Auto) 0.7 2.1 Basophils (%) (Auto) 0.2 0.2 Neutrophils # (Auto) 9.26 4.35 Lymphocytes # (Auto) 2.55 3.22 Monocytes # (Auto) 0.60 0.40 Eosinophils # (Auto) 0.09 0.17 Basophils # (Auto) 0.03 0.02 RDW Standard Deviation 42.6 44.8 RDW Coefficient of Variation 12.6 13.2 Immature Granulocyte % (Auto) 0.2 0.1 Immature Granulocyte # (Auto) 0.03 0.01 Sodium Level 139 141 Potassium Level 3.3 3.5 Chloride Level 108 112 Carbon Dioxide Level 22 21 Anion Gap 9.0 8.0 Blood Urea Nitrogen 8 Creatinine 0.83 Est Creatinine Clear Calc Drug Dose 93.0 Estimated GFR () 103.0 Estimated GFR (Non- 88.8 BUN/Creatinine Ratio 9.2 Random Glucose 100 Calcium Level 9.4 Total Bilirubin 0.6 Direct Bilirubin 0.1 Aspartate Amino Transferase (AST) 15 Alanine Aminotransferase (ALT) 33 Alkaline Phosphatase 86 Total Protein 9.0 Albumin 4.6 Thyroid Stimulating Hormone (TSH) 0.870 Ethyl Alcohol mg/dL < 3.0 POC Glucose 126 Fasting Glucose 87 Triglycerides Level 106 Cholesterol Level 157 HDL Cholesterol 38 LDL Cholesterol, Calculated 98 VLDL Cholesterol, Calculated 21 Cholesterol/HDL Ratio 4.1 Total Time Total Time Spent (min): Greater than 30 minutes Total Time Included: examination of the patient, discharge planning, medication reconciliation, communication with other providers Tobacco Cessation at Discharge Smoking Status: Current Every Day Smoker FDA approved Prescription: declined med & out pt counseling
--- NOTE | 2017-03-27 08:43 | Psychiatric Progress Notes ---
Psychiatric Progress Note Date of Service March 27, 2017. Notes Pre auth for patient's Invega attempted, but pharmacy did not have insurance listed for patient for the last 2 years. I reviewed list of patient's past med trials and has had a positive trial of risperdal in the past. Instructed Holley Blanton RN to phone in rx for Risperdal 1 mg. po q HS #30 no refills and DC Invega, and to inform the patient.
[2017-03-28] MEDS ORDERED: INVEGA SUSTENNA 156 MG/ML 1 ML SYR IM SCH (09:00)
== END 2017-03-26 11:56 | disposition home or self-care (01) | DRG 885 ==
LOC: C.EDB 03:02 → C.MHU 13:45
PROVIDERS: ADMIT Psychiatry & Neurology Child & Adolescent Psychiatry; ATTEND Psychiatry & Neurology Psychiatry
DX: F25.0 Schizoaffective disorder, bipolar type (principal); G43.909 Migraine, unspecified, not intractable, without status migrainosus; F32.9 Major depressive disorder, single episode, unspecified; F15.90 Other stimulant use, unspecified, uncomplicated; F17.200 Nicotine dependence, unspecified, uncomplicated; F41.9 Anxiety disorder, unspecified; Z86.59 Personal history of other mental and behavioral disorders; Z81.8 Family history of other mental and behavioral disorders; Z79.899 Other long term (current) drug therapy; Z22.322 Carrier or suspected carrier of Methicillin resistant Staphylococcus aureus

== ENCOUNTER 2018-04-05 16:57 | Emergency (ER) | payer OTHER ==
[~2018-04-05] VITALS: Ht 170.2 cm; Wt 72.5 kg
[~2018-04-05 16:57] MED LIST changes: -CYAN1LOZ PO; -DOXY-300 PO; -GABA-113 PO; -HYDR-5688 PO; -MISCCAP80 PO; +PALI3TAB PO; -SILV1PAD9 TOP; -VENL150C PO; -[UNRECOGNIZED DRUG - CODE] TOP
[2018-04-05 17:25] VITALS: TEMP 37; Ht 170.2 cm; Wt 72.5 kg
--- NOTE | 2018-04-05 17:29 | EMERGENCY ROOM VISIT NOTE ---
History Report prepared by Veena: Herb Thomson Under the Supervision of: Dr. Robin Kaye M.D. First contact with patient: 17:06 Chief Complaint: MENTAL HEALTH EVALUATION Stated Complaint: MHID History of Present Illness The patient is a 38 year old female who presents to the Emergency Room for persistent depression that began a while ago. The patient states that she has a history of anxiety and depression, which she normally takes medications for. She reports that she has been off of her medications for a while. The patient states it seems as if one thing is happening after the other. She reports that she has been having problems with her ex who has custody of her 11 year old child. The patient states she has not been able to find a job and cannot find one since her car broke down. She reports that she believes that people have been out to get here. The patient states that some of the things she is paranoid about is real and some may be "exaggerated since I'm ill". She reports that people have been breaking into her home and she does not feel safe. The patient states there has been drug activity in her apartment complex as well. She notes "I'm at wits end". The patient reports she has had suicidal ideations but does not have a plan. Per nursing, the patient states the only reason she has not committed suicide is due to her children. Source of History: patient Onset: a while ago Position: other (global) Quality: other (depression) Timing: other (persistent) Review of Systems See HPI for pertinent positives & negatives. A total of 10 systems reviewed and were otherwise negative. Past Medical & Surgical Medical Problems: (1) Anxiety (2) Depression (3) History of intravenous drug use in remission (4) IBS (irritable bowel syndrome) (5) Migraines (6) MRSA (methicillin resistant staph aureus) culture positive (7) Nicotine dependence (8) Schizoaffective disorder, bipolar type (9) Substance use disorder Surgical Problems: (1) History of section Family History Patient reports no known family medical history. Social History Smoking Status: Current Every Day Smoker Drug Use: other Marital Status: single Occupation Status: employed Current/Historical Medications Scheduled Gabapentin (Neurontin), 200 MG PO TID Risperidone (Risperdal Consta), 25 MG IM ONCE EVERY TWO WEEKS Topiramate (Topamax), 50 MG PO DAILY Topiramate (Topiramate), 100 MG PO HS Venlafaxine Hcl (Effexor Xr), 1 CAP PO DAILY Allergies Coded Allergies: Haloperidol (Unverified Allergy, Unknown, THROAT TIGHTNESS, 04/05/18) Quinolones (Verified Allergy, Unknown, SENSITIVE, 04/05/18) Physical Exam Vital Signs Date Time Temp Pulse Resp B/P (MAP) Pulse Ox O2 Delivery O2 Flow Rate FiO2 04/06/18 08:08 82 20 102/82 98 04/05/18 22:23 89 18 107/60 97 Room Air 04/05/18 21:14 89 18 108/62 98 Room Air 04/05/18 19:11 91 18 139/88 100 Room Air 04/05/18 17:25 37.0 103 18 119/86 99 Room Air Physical Exam GENERAL: Tearful, awake, alert, well-appearing, in no acute distress HENT: Normocephalic, atraumatic. Oropharynx unremarkable. EYES: Normal conjunctiva. Sclera non-icteric. NECK: Supple. No nuchal rigidity. FROM. No JVD. RESPIRATORY: Clear to auscultation. CARDIAC: Regular rate, normal rhythm. Extremities warm and well perfused. Pulses equal. ABDOMEN: Soft, non-distended. No tenderness to palpation. No rebound or guarding. No masses. RECTAL: Deferred. MUSCULOSKELETAL: Chest examination reveals no tenderness. The back is symmetrical on inspection without obvious abnormality. There is no CVA tenderness to palpation. No joint edema. LOWER EXTREMITIES: Calves are equal size bilaterally and non-tender. No edema. No discoloration. NEURO: Normal sensorium. No sensory or motor deficits noted. SKIN: No rash or jaundice noted. PSYCH: Admits to suicidal ideation. Medical Decision & Procedures Laboratory Results 04/05/18 17:47 Red Blood Count 4.51, Mean Corpuscular Volume 92.5, Mean Corpuscular Hemoglobin 31.7, Mean Corpuscular Hemoglobin Concent 34.3, Mean Platelet Volume 10.1, Neutrophils (%) (Auto) 71.5, Lymphocytes (%) (Auto) 22.8, Monocytes (%) (Auto) 3.7, Eosinophils (%) (Auto) 1.5, Basophils (%) (Auto) 0.2, Neutrophils # (Auto) 9.15, Lymphocytes # (Auto) 2.92, Monocytes # (Auto) 0.47, Eosinophils # (Auto) 0.19, Basophils # (Auto) 0.02 04/05/18 17:37 Test 04/05/18 17:10 04/05/18 17:37 04/05/18 17:47 04/05/18 17:50 Urine Color YELLOW Urine Appearance CLEAR (CLEAR) Urine pH 6.5 (4.5-7.5) Urine Specific [place] 1.023 (1.000-1.030) Urine Protein NEG (NEG) Urine Glucose (UA) NEG (NEG) Urine Ketones NEG (NEG) Urine Occult Blood NEG (NEG) Urine Nitrite NEG (NEG) Urine Bilirubin NEG (NEG) Urine Urobilinogen NEG (NEG) Urine Leukocyte Esterase NEG (NEG) Urine Test NEG (NEG) Urine Opiates Screen NEG (NEG) Urine Methadone, Qualitative NEG (NEG) Urine Barbiturates NEG (NEG) Urine Phencyclidine (PCP) Level NEG (NEG) Ur Amphetamine/Methamphetamine NEG (NEG) MDMA (Ecstasy) Screen NEG (NEG) Urine Benzodiazepines Screen NEG (NEG) Urine Cocaine Metabolite NEG (NEG) Urine Marijuana (THC) NEG (NEG) Anion Gap 6.0 mmol/L (3-11) Est Creatinine Clear Calc Drug Dose 107.0 ml/min Estimated GFR () 126.8 Estimated GFR (Non- 109.4 BUN/Creatinine Ratio 9.1 (10-20) Calcium Level 9.2 mg/dl (8.5-10.1) Total Bilirubin 0.3 mg/dl (0.2-1) Direct Bilirubin < 0.1 mg/dl (0-0.2) Aspartate Amino Transf (AST/SGOT) 23 U/L (15-37) Alanine Aminotransferase (ALT/SGPT) 37 U/L (12-78) Alkaline Phosphatase 96 U/L (45-117) Total Protein 8.1 gm/dl (6.4-8.2) Albumin 3.7 gm/dl (3.4-5.0) Thyroid Stimulating Hormone (TSH) 0.466 uIu/ml (0.300-4.500) White Blood Count 12.79 K/uL (4.8-10.8) Red Blood Count 4.51 M/uL (4.2-5.4) Hemoglobin 14.3 g/dL (12.0-16.0) Hematocrit 41.7 % (37-47) Mean Corpuscular Volume 92.5 fL (80-100) Mean Corpuscular Hemoglobin 31.7 pg (25-34) Mean Corpuscular Hemoglobin Concent 34.3 g/dl (32-36) Platelet Count 339 K/uL (130-400) Mean Platelet Volume 10.1 fL (7.4-10.4) Neutrophils (%) (Auto) 71.5 % Lymphocytes (%) (Auto) 22.8 % Monocytes (%) (Auto) 3.7 % Eosinophils (%) (Auto) 1.5 % Basophils (%) (Auto) 0.2 % Neutrophils # (Auto) 9.15 K/uL (1.4-6.5) Lymphocytes # (Auto) 2.92 K/uL (1.2-3.4) Monocytes # (Auto) 0.47 K/uL (0.11-0.59) Eosinophils # (Auto) 0.19 K/uL (0-0.5) Basophils # (Auto) 0.02 K/uL (0-0.2) RDW Standard Deviation 43.8 fL (36.4-46.3) RDW Coefficient of Variation 13.0 % (11.5-14.5) Immature Granulocyte % (Auto) 0.3 % Immature Granulocyte # (Auto) 0.04 K/uL (0.00-0.02) Ethyl Alcohol mg/dL < 3.0 mg/dl (0-3) Bedside Glucose 122 mg/dl (70-90) Date/Time Source Procedure Growth Status 04/05/18 21:09 Nasal MRSA DNA Surveillance Screen - Final Specimen Negative for MRSA by DNA Probe Complete Labs reviewed by ED physician. Medications Administered Medications (Trade) Dose Ordered Sig/Jason Route Start Time Stop Time Status Last Admin Dose Admin Risperidone (Risperdal Tab) 1 mg HS PO 04/05/18 21:00 04/06/18 09:14 DC 04/05/18 20:29 1 MG Lorazepam (Ativan Inj) 2 mg NOW STAT IM 04/05/18 19:56 04/05/18 19:57 DC 04/05/18 19:56 2 MG Haloperidol (Haldol Tab) 10 mg NOW STAT PO 04/05/18 20:10 04/05/18 20:12 DC 04/05/18 20:10 10 MG Benztropine Mesylate (Cogentin Tab) 2 mg NOW STAT PO 04/05/18 20:10 04/05/18 20:12 DC 04/05/18 20:10 2 MG Gabapentin (Neurontin Cap) 200 mg NOW STAT PO 04/06/18 06:08 04/06/18 06:10 DC 04/06/18 06:08 200 MG Topiramate (Topamax Tab) 50 mg NOW STAT PO 04/06/18 06:09 04/06/18 06:11 DC 04/06/18 06:09 50 MG Venlafaxine HCl (effeXOR EXTENDED REL CAP) 150 mg ONE STAT PO 04/06/18 06:21 04/06/18 06:22 DC 04/06/18 06:21 150 MG ED Course 1718: Past medical records reviewed. The patient was evaluated in room A06. A complete history and physical examination was performed. 1811: The patient is medically clear. 1957: Ordered Ativan Injection 4 mg IM. 2000: Ordered Cogentin Injection 2 mg IM, Haldol Injection 10 mg IM. 2009: Ordered Cogentin Tab 2 mg PO, Ativan Tab 2 mg SL, Haldol Tab 10 mg PO. 2099: Ordered Risperidone 1 mg PO. 2229: The patient was signed out to Dr. Méndez at the change of shift. Medical Decision Prior records/ancillary studies reviewed. Triage Nursing notes reviewed. The patient's history was concerning for possible psychiatric disturbance. Differential diagnosis: Etiologies such as mood disorder, infection, hypoglycemia, electrolyte abnormalities, cardiac sources, intracerebral event, toxicologic, neurologic, as well as others were entertained. This is a 38-year-old female who presents emergency department suicidal ideation as well as hallucinations. Patient feels that there is somebody following her around and appears acutely paranoid. I will note that the patient has been here previously for psychotic breaks. She has been violent with staff previously and has wild mood swings. The patient originally was willing to sign herself in however changed her mind and attempted to leave. At this point I initiated a 302. This got the patient incredibly angry I tried to verbally de-escalate her multiple times and explained to her that she had multiple chances to sign herself in which she was unwilling to do. When the patient would not de-escalate I ordered IM medications including Haldol and Ativan as well as Cogentin. The patient then argued to have the patient's taken orally. She then refused to orally take 1 of the medications. I will note this the type of behavior the patient has been exhibiting since her arrival here, saying she will do one thing and then refusing to do it. I will also note that the previous visit here for psychiatric reasons, the patient was violent with security and also signed herself in but immediately gave a 72 hour notice that she is willing to leave. Based on these facts along with I feel that the patient is a serious threat to herself I did pursue a 302. When the patient refused oral Ativan she was given Ativan IM. She does have a slight elevation in her white blood cell count however I will note she has previously had this white blood cell count. The patient also admits to not taking her medications however she states the only medication she is on is Respirdal. Based on previous medication list I do not think that this is accurate. She was signed out to Dr. Méndez at change of shift pending bed placement. Medication Reconcilliation Current Medication List: was personally reviewed by me Blood Pressure Screening Patient's blood pressure: Normal blood pressure Impression Primary Impression: Mood disorder Critical Care I have personally spent greater than 30 minutes of critical care time in the direct management of this patient. This includes bedside care, interpretation of diagnostic studies, and testing, discussion with consultants, patient, and family members, and other required patient management activities. This 30 minutes is in excess of all separately billable procedures. Scribe Attestation The scribe's documentation has been prepared under my direction and personally reviewed by me in its entirety. I confirm that the note above accurately reflects all work, treatment, procedures, and medical decision making performed by me. Departure Information Dispostion Still a Patient Referrals No Doctor, Assigned (PCP) Patient Instructions My [facility]
[2018-04-05] MEDS ORDERED: TPM100 PO (17:56)
[2018-04-05] MEDS ORDERED: GABA-112 PO (17:58)
[2018-04-05] MEDS ORDERED: VENL150C PO (17:58)
[2018-04-05] MEDS ORDERED: RISP-99 PO (18:03)
[2018-04-05 18:06] LABS: BASO % 0.2 %; BASO ABS # 0.02 K/uL (0-0.2); EOS % 1.5 %; EOS ABS # 0.19 K/uL (0-0.5); HEMATOCRIT 41.7 % (37-47); HEMOGLOBIN 14.3 g/dL (12.0-16.0); IG# 0.04 K/uL (0.00-0.02); LYMPH % 22.8 %; LYMPH ABS # 2.92 K/uL (1.2-3.4); MEAN CELL VOLUME 92.5 fL (80-100); MEAN CORPUSCULAR HEMOGLOBIN 31.7 pg (25-34); MEAN CORPUSCULAR HGB CONC 34.3 g/dl (32-36); MEAN PLATELET VOLUME 10.1 fL (7.4-10.4); MONO % 3.7 %; MONO ABS # 0.47 K/uL (0.11-0.59); NEUT % 71.5 %; NEUT ABS # 9.15 K/uL (1.4-6.5); PLATELET COUNT 339 K/uL (130-400); RED CELL DISTRIBUTION WIDTH SD 43.8 fL (36.4-46.3); WHITE BLOOD COUNT 12.79 K/uL (4.8-10.8)
[2018-04-05] MEDS ORDERED: RSPI25 IM (18:07)
[2018-04-05 18:23] LABS: ALBUMIN 3.7 gm/dl (3.4-5.0); ALT/SGPT 37 U/L (12-78); AST/SGOT 23 U/L (15-37); BLOOD UREA NITROGEN 6 mg/dl (7-18); CALCIUM 9.2 mg/dl (8.5-10.1); CARBON DIOXIDE 25 mmol/L (21-32); CREATININE 0.68 mg/dl (0.60-1.20); GLUCOSE 111 mg/dl (70-99); POTASSIUM 3.7 mmol/L (3.5-5.1); SODIUM 139 mmol/L (136-145)
[2018-04-05 18:34] LABS: ALKALINE PHOSPHATASE 96 U/L (45-117); TOTAL PROTEIN 8.1 gm/dl (6.4-8.2)
[2018-04-05] MEDS ORDERED: LORAZEPAM 2 MG/ML 1 ML VIAL IM STA (19:56)
[2018-04-05] MEDS ORDERED: LORAZEPAM 2 MG/ML 1 ML VIAL ONE (19:58)
[2018-04-05] MEDS ORDERED: HALOPERIDOL LACTATE 5 MG/ML 1 ML VIAL IM STA (20:01)
[2018-04-05] MEDS ORDERED: BENZTROPINE MESYLATE 1 MG/ML 2 ML AMP IM STA (20:01)
[2018-04-05] MEDS ORDERED: HALOPERIDOL LACTATE 5 MG/ML 1 ML VIAL ONE (20:02)
[2018-04-05] MEDS ORDERED: BENZTROPINE MESYLATE 1 MG TAB PO STA (20:10)
[2018-04-05] MEDS ORDERED: HALOPERIDOL 5 MG TAB PO STA (20:10)
[2018-04-05] MEDS ORDERED: LORAZEPAM 1 MG TAB SL STA (20:10)
[2018-04-05] MEDS ORDERED: RISPERIDONE 1 MG TAB PO SCH (21:00)
--- NOTE | 2018-04-05 22:25 | EMERGENCY ROOM VISIT NOTE ---
ED Visit Note First contact with patient: 22:25 I assumed care from Dr. Kaye. Patient is an involuntary inpatient admission and is pending placement. Patient was accepted for placement. Will not be transferred until tomorrow AM. Signed out to evening physician, pending transfer to inpatient psych facility in AM.
[2018-04-06] MEDS ORDERED: GABAPENTIN 100 MG CAP PO STA (06:08)
--- NOTE | 2018-04-06 06:08 | EMERGENCY ROOM VISIT NOTE ---
ED Visit Note First contact with patient: 06:07 This case was signed out to me at change of shift awaiting transfer to [facility] in the morning. The patient slept throughout the night. I will order her morning medications. She will be transferred to that facility by santhosh.
[2018-04-06] MEDS ORDERED: VENLAFAXINE HCL 50 MG TAB PO STA (06:09)
[2018-04-06] MEDS ORDERED: TOPIRAMATE 50 MG TAB PO STA (06:09)
[2018-04-06] MEDS ORDERED: VENLAFAXINE HCL XR 150 MG CAPXR PO STA (06:21)
[2018-04-06 08:08] VITALS: BP 102/82; PULSE 82; O2SAT 98
== END 2018-04-06 08:09 ==
LOC: EDBD 16:57 → C.EDA 16:58
DX: F39 Unspecified mood [affective] disorder (principal); R45.851 Suicidal ideations; R44.3 Hallucinations, unspecified; F41.9 Anxiety disorder, unspecified; F25.0 Schizoaffective disorder, bipolar type; F17.200 Nicotine dependence, unspecified, uncomplicated; Z79.899 Other long term (current) drug therapy; Z88.8 Allergy status to other drugs, medicaments and biological substances; Z88.1 Allergy status to other antibiotic agents